=== PATIENT | male | born 1955 | race Caucasian/White ===

== ENCOUNTER → 2016-11-23 | Outpatient (CLI) | payer OTHER ==
[~2016-11-23] MED LIST: ASCO100061 PO; ASPCH81X PO; ASPI81TA28 PO; CHOL100010 PO; CHOL20007 PO; GINS1CAP PO; GREE150C5 PO; K PO; LYCOCAP2 PO; MAGN250T3 PO; MAGNESIU; MILK THISTLE PO; MILK140C PO; MISCTAB26; SELE1TAB5 PO; SIMV20TA2 PO; SPIRULINA; Selenium; TAMS0.4C38 PO; TURM500T PO; VITATAB19 PO; [UNRECOGNIZED DRUG - OTHER]; curcumin; ginseng PO; zinc
[2016-11-23 14:08] VITALS: BP 103/62; PULSE 76; TEMP 36.8; O2SAT 97
== END | disposition home or self-care (01) ==
LOC: C.ONC 13:57
PROVIDERS: ATTEND Physician Assistant Medical
DX: C61 Malignant neoplasm of prostate (principal)

== ENCOUNTER 2016-12-26 19:22 | Emergency (ER) | payer OTHER ==
[~2016-12-26] VITALS: Ht 172.7 cm; Wt 70.8 kg
[~2016-12-26 19:22] MED LIST changes: -ASPI81TA28 PO; -CHOL20007 PO; -GINS1CAP PO; -GREE150C5 PO; -MAGN250T3 PO; -MILK140C PO; -SELE1TAB5 PO; -TURM500T PO
[2016-12-26 19:31] VITALS: TEMP 36.7; Ht 172.7 cm; Wt 70.8 kg
[2016-12-26] MEDS ORDERED: MILK140C PO (21:18)
[2016-12-26] MEDS ORDERED: GREE150C5 PO (21:18)
[2016-12-26] MEDS ORDERED: ASPI81TA28 PO (21:18)
[2016-12-26] MEDS ORDERED: TURM500T PO (21:18)
[2016-12-26] MEDS ORDERED: SELE1TAB5 PO (21:18)
[2016-12-26] MEDS ORDERED: CHOL20007 PO (21:18)
[2016-12-26] MEDS ORDERED: GINS1CAP PO (21:18)
[2016-12-26] MEDS ORDERED: MAGN250T3 PO (21:18)
[2016-12-26] MEDS ORDERED: GI COCKTAIL PO STA (21:39)
[2016-12-26] MEDS ORDERED: SUCRALFATE 1 GM TAB PO STA (21:39)
[2016-12-26] MEDS ORDERED: FAMOTIDINE 20 MG TAB PO STA (21:39)
[2016-12-26] MEDS ORDERED: LIDOCAINE HCL 2% VISC SOLN 20 ML UDC ONE (22:03)
[2016-12-26] MEDS ORDERED: ALUMINUM/MAGNESIUM SUSP 30 ML UDC ONE (22:03)
--- NOTE | 2016-12-26 22:05 | DIAGNOSTIC IMAGING REPORT ---
CHEST ONE VIEW PORTABLE HISTORY: Atypical CHEST PAIN COMPARISON: Chest 06/14/2016. FINDINGS: The lungs are clear. Cardiac silhouette is normal in size. No pleural effusions. No pneumothorax. IMPRESSION: No acute process. Electronically signed by: Christian An M.D. 12/26/2016 10:03 PM Dictated Date/Time: 12/26/2016 10:02 PM
[2016-12-26 22:12] VITALS: O2SAT 98
[2016-12-26 22:14] LABS: BASO % 0.2 %; BASO ABS # 0.01 K/uL (0-0.2); COMPLETE YES; EOS % 2.6 %; HEMATOCRIT 40.4 % (42-52); LYMPH % 28.1 %; LYMPH ABS # 1.21 K/uL (1.2-3.4); MEAN CELL VOLUME 91.8 fL (80-100); MEAN CORPUSCULAR HEMOGLOBIN 33.4 pg (25-34); MEAN CORPUSCULAR HGB CONC 36.4 g/dl (32-36); MEAN PLATELET VOLUME 8.7 fL (7.4-10.4); MONO % 11.8 %; NEUT % 57.3 %; PLATELET COUNT 176 K/uL (130-400); WHITE BLOOD COUNT 4.31 K/uL (4.8-10.8)
[2016-12-26 22:34] LABS: ALT/SGPT 24 U/L (12-78); BLOOD UREA NITROGEN 10 mg/dl (7-18); BUN/CREATININE RATIO 13.2 (10-20); CARBON DIOXIDE 30 mmol/L (21-32); CHLORIDE 103 mmol/L (98-107); CREATININE 0.77 mg/dl (0.60-1.40); GLUCOSE 83 mg/dl (70-99); POTASSIUM 3.8 mmol/L (3.5-5.1); SODIUM 139 mmol/L (136-145)
[2016-12-26 22:38] LABS: CALCIUM 9.1 mg/dl (8.5-10.1)
[2016-12-26 22:40] LABS: ALKALINE PHOSPHATASE 59 U/L (45-117); AST/SGOT 16 U/L (15-37); CKMB/CK RATIO 1.3 (0-3.0)
[2016-12-26 23:13] VITALS: BP 129/84; PULSE 59; O2SAT 99
--- NOTE | 2016-12-26 23:32 | EMERGENCY ROOM VISIT NOTE ---
History Report prepared by Delia: Yessica Hernández Under the Supervision of: Dr. Jcarlos Sorensen M.D. First contact with patient: 20:59 Chief Complaint: CHEST PAIN Stated Complaint: CHEST PAIN, L ARM AND BACK PAIN Nursing Triage Summary: pt states he has had intermittent chest pain for ~2 weeks. states pain is left sided radiating into back. denies sob/dizziness/n/v. pt states pain is 1/10 at this time. pt breathing regularly and independently at this time. skin warm and dry. History of Present Illness The patient is a 61 year old male who presents to the Emergency Room with complaints of intermittent left-sided chest pains for the past two weeks. He states that two weeks ago he was doing yard work outside on a hot day. He became overheated and dehydrated. He developed a feeling of fullness in his chest. He states that it has improved, but it has never completely resolved. He is still experiencing a sensation of fullness in his chest. The patient rates his discomfort as a 2/10 in severity. He states that his fullness occasionally radiates into his left arm and back. Eating helps to alleviate his pain, but he reports having a lot of indigestion over the past couple of weeks. He just started taking Prilosec two days ago. The patient had similar pain in June. He followed-up with cardiology at that time and had a stress test that was negative. Source of History: patient Onset: 2 weeks ago Position: chest (left) Symptom Intensity: 2/10 Quality: other (fullness) Timing: intermittent Modifying Factors (Worsening): other (being outside in the heat exerting self) Modifying Factors (Relieving): eating Associated Symptoms: + back pain Review of Systems See HPI for pertinent positives & negatives. A total of 10 systems reviewed and were otherwise negative. Past Medical & Surgical Medical Problems: (1) Diverticulosis of colon (without mention of hemorrhage) (2) Prostate cancer Family History Patient reports no known family medical history. Social History Smoking Status: Never Smoker Drug Use: none Marital Status: Housing Status: lives with significant other Occupation Status: employed Current/Historical Medications Scheduled Ascorbic Acid (Ascorbic Acid), 1 TAB PO DAILY Aspirin (Aspirin Ec), 81 MG PO DAILY Cholecalciferol (Vitamin D3), 1 TAB PO DAILY Ginseng (Ginseng), 1 CAP PO 3XWK Green Tea (Camillia Sinensis) (Green Tea Extract), 1 TAB PO 3XWK Lycopene (Lycopene), 50 MG PO WK Magnesium (Magnesium 250 mg), 250 MG PO DAILY Milk Thistle (Silybum Marianum (Milk Thistle), 1 TAB PO DAILY Misc Natural Products (Ginkgo Biloba), 40 MG DAILY Selenium-Yeast (Selenium), 200 MG PO DAILY Simvastatin (Zocor), 20 MG PO QPM Tamsulosin Hcl (Flomax), 1 CAP PO BID Turmeric (Curcuma Longa) (Turmeric), 750 MG PO DAILY Vitamin A-Beta Carotene (Vitamin A), 8,000 UNITS PO 3XWK [zinc], 50 MG DAILY Allergies Uncoded Allergies: NKDA (Allergy, Unknown, 08/21/02) Physical Exam Vital Signs Date Time Temp Pulse Resp B/P (MAP) Pulse Ox O2 Delivery O2 Flow Rate FiO2 12/26/16 23:13 59 18 129/84 99 12/26/16 22:16 61 18 139/81 99 Nasal Cannula 2.0 12/26/16 22:12 98 Nasal Cannula 2.0 12/26/16 22:12 98 Nasal Cannula 2.0 12/26/16 21:37 58 12/26/16 20:52 54 18 123/84 96 Room Air 12/26/16 20:50 96 Room Air 12/26/16 19:31 36.7 56 18 135/88 97 Room Air Pain Rating (0-10): 0 Physical Exam GENERAL: Patient is a healthy-appearing well-nourished male. HEAD: Normocephalic atraumatic EYES: Ocular movements intact pupils equal and react to light OROPHARYNX mucous membranes are moist no exudates present no erythema or edema present NECK: Supple no nuchal rigidity CHEST: Good equal expansion LUNGS: Clear and equal to auscultation CARDIAC: Normal S1 and S2 ABDOMEN: Soft nontender no guarding BACK: No CVA tenderness EXTREMITIES: No pain upon palpation normal muscle strength in all groups no clubbing cyanosis or edema NEURO: Patient is following commands and answering questions appropriately. Alert and oriented x3 Cranial Nerves 2-12 grossly intact Medical Decision & Procedures ER Provider Diagnostic Interpretation: Radiology results as stated below per my review and radiologist interpretation: CHEST ONE VIEW PORTABLE HISTORY: Atypical CHEST PAIN COMPARISON: Chest 06/14/2016. FINDINGS: The lungs are clear. Cardiac silhouette is normal in size. No pleural effusions. No pneumothorax. IMPRESSION: No acute process. Electronically signed by: Christian An M.D. 12/26/2016 10:03 PM Dictated Date/Time: 12/26/2016 10:02 PM Laboratory Results 12/26/16 22:05 Red Blood Count 4.40, Mean Corpuscular Volume 91.8, Mean Corpuscular Hemoglobin 33.4, Mean Corpuscular Hemoglobin Concent 36.4, Mean Platelet Volume 8.7, Neutrophils (%) (Auto) 57.3, Lymphocytes (%) (Auto) 28.1, Monocytes (%) (Auto) 11.8, Eosinophils (%) (Auto) 2.6, Basophils (%) (Auto) 0.2, Neutrophils # (Auto ) 2.47, Lymphocytes # (Auto) 1.21, Monocytes # (Auto) 0.51, Eosinophils # (Auto ) 0.11, Basophils # (Auto) 0.01 12/26/16 22:05 Test 12/26/16 22:05 White Blood Count 4.31 K/uL (4.8-10.8) Red Blood Count 4.40 M/uL (4.7-6.1) Hemoglobin 14.7 g/dL (14.0-18.0) Hematocrit 40.4 % (42-52) Mean Corpuscular Volume 91.8 fL (80-100) Mean Corpuscular Hemoglobin 33.4 pg (25-34) Mean Corpuscular Hemoglobin Concent 36.4 g/dl (32-36) Platelet Count 176 K/uL (130-400) Mean Platelet Volume 8.7 fL (7.4-10.4) Neutrophils (%) (Auto) 57.3 % Lymphocytes (%) (Auto) 28.1 % Monocytes (%) (Auto) 11.8 % Eosinophils (%) (Auto) 2.6 % Basophils (%) (Auto) 0.2 % Neutrophils # (Auto) 2.47 K/uL (1.4-6.5) Lymphocytes # (Auto) 1.21 K/uL (1.2-3.4) Monocytes # (Auto) 0.51 K/uL (0.11-0.59) Eosinophils # (Auto) 0.11 K/uL (0-0.5) Basophils # (Auto) 0.01 K/uL (0-0.2) RDW Standard Deviation 40.4 fL (36.4-46.3) RDW Coefficient of Variation 11.9 % (11.5-14.5) Immature Granulocyte % (Auto) 0.0 % Immature Granulocyte # (Auto) 0.00 K/uL (0.00-0.02) Anion Gap 6.0 mmol/L (3-11) Est Creatinine Clear Calc Drug Dose 95.0 ml/min Estimated GFR () 111.9 Estimated GFR (Non- 96.6 BUN/Creatinine Ratio 13.2 (10-20) Calcium Level 9.1 mg/dl (8.5-10.1) Total Bilirubin 1.5 mg/dl (0.2-1) Direct Bilirubin 0.3 mg/dl (0-0.2) Aspartate Amino Transf (AST/SGOT) 16 U/L (15-37) Alanine Aminotransferase (ALT/SGPT) 24 U/L (12-78) Alkaline Phosphatase 59 U/L (45-117) Total Creatine Kinase 67 U/L (39-308) Creatine Kinase MB 0.9 ng/ml (0.5-3.6) Creatine Kinase MB Ratio 1.3 (0-3.0) Troponin I < 0.015 ng/ml (0-0.045) Total Protein 7.7 gm/dl (6.4-8.2) Albumin 3.8 gm/dl (3.4-5.0) Lipase 200 U/L (73-393) Labs reviewed by ED physician. Medications Administered Medications (Trade) Dose Ordered Sig/Tania Route Start Time Stop Time Status Last Admin Dose Admin Famotidine (Pepcid Tab) 20 mg NOW STAT PO 12/26/16 21:39 12/26/16 21:42 DC 12/26/16 22:10 20 MG Sucralfate (Carafate Tab) 1 gm NOW STAT PO 12/26/16 21:39 12/26/16 21:42 DC 12/26/16 22:11 1 GM Lidocaine HCl (Viscous Lidocaine 2% Soln) 20 ml STK-MED ONCE .ROUTE 12/26/16 22:03 12/26/16 22:04 DC 12/26/16 22:11 20 ML Al Hydroxide/Mg Hydroxide (Maalox Susp) 30 ml STK-MED ONCE .ROUTE 12/26/16 22:03 12/26/16 22:04 DC 12/26/16 22:12 30 ML ECG Indication: chest pain Rate (beats per minute): 58 Rhythm: sinus bradycardia Findings: no acute ischemic change, no ectopy ED Course 2111: Past medical records reviewed. The patient was evaluated in room C5. A complete history and physical examination was performed. 2138: Sucralfate 1 gm PO, Pepcid 20 mg PO, GI cocktail 24 ml PO 2300: I reassessed the patient at this time. He is feeling better and resting comfortably. I discussed the results and treatment plan with the patient. I answered all pertaining questions that he had. He expressed understanding and verbalized agreement. The patient will be discharged home. Medical Decision Differential diagnosis: Etiologies such as cardiac ischemia, aortic dissection, pulmonary embolism, pneumonia, pneumothorax, musculoskeletal, infections, pericarditis, myocarditis , esophageal rupture, gastrointestinal, as well as others were entertained. Medication Reconciliation: I attest that I have personally reviewed the patient' s current medication list. Blood Pressure Screening: Patient was found to have normal blood pressure on screening and does not require follow up. This is a 61-year-old male who presents emergency department complaining of chest tightness that is similar to what he had in July. At that time the patient had a stress test that was found to be normal. The patient himself started himself on Prilosec several days ago for the chest pain. As the chest pain is been ongoing for several weeks I would expect the troponin to be elevated if this were related to cardiac ischemia. As such it is not. In addition the patient was given a GI cocktail Pepcid and Carafate with cessation of the symptoms. Based on these findings I feel that the patient can be safely discharged home however stressed the need for follow-up with gastroenterology. Patient and are in agreement with the treatment plan area Impression Primary Impression: GERD (gastroesophageal reflux disease) Scribe Attestation The scribe's documentation has been prepared under my direction and personally reviewed by me in its entirety. I confirm that the note above accurately reflects all work, treatment, procedures, and medical decision making performed by me. Departure Information Dispostion Home / Self-Care Referrals Maryan Fajardo, DO Forms HOME CARE DOCUMENTATION FORM, IMPORTANT VISIT INFORMATION Patient Instructions Hypertension Control, [facility], ED GERD Additional Instructions Take 5ml Maalox before every meal and at bedtime Clear liquid diet next 48 hours Follow up with DR Fajardo's office You were found to have an elevated blood pressure today (>120 sytolic or >90 diastolic). Per medicare guidelines, you need to follow up with this blood pressure screening with your Primary Care Physician (PCP). For a new PCP call [phone]. You have been examined and treated today on an emergency basis only. This is not a substitute for, or an effort to provide, complete comprehensive medical care. It is impossible to recognize and treat all injuries or illnesses in a single emergency department visit. It is therefore important that you follow up closely with Dr Nails. Call as soon as possible for an appointment. Thank you for your time and consideration. I look forward to speaking with you again soon. Please don't hesitate to call us if you have any questions. Problem Qualifiers Primary Impression: GERD (gastroesophageal reflux disease) Esophagitis presence: esophagitis presence not specified Qualified Codes: K21.9 - Gastro-esophageal reflux disease without esophagitis
== END 2016-12-26 23:14 | disposition home or self-care (01) ==
LOC: C.EDB 19:25 → C.EDC 23:14
DX: K21.9 Gastro-esophageal reflux disease without esophagitis (principal); K57.31 Diverticulosis of large intestine without perforation or abscess with bleeding; Z85.46 Personal history of malignant neoplasm of prostate; Z79.82 Long term (current) use of aspirin; Z79.899 Other long term (current) drug therapy

== ENCOUNTER 2017-02-03 13:13 | Emergency (ER) | payer OTHER ==
[~2017-02-03] VITALS: Ht 170.2 cm; Wt 70.5 kg
[~2017-02-03 13:13] MED LIST changes: -ASPCH81X PO; +ASPI81TA28 PO; -CHOL100010 PO; +CHOL20007 PO; +GINS1CAP PO; +GREE150C5 PO; -K PO; +MAGN250T3 PO; -MAGNESIU; -MILK THISTLE PO; +MILK140C PO; +SELE1TAB5 PO; -SPIRULINA; -Selenium; +TURM500T PO; -[UNRECOGNIZED DRUG - OTHER]; -curcumin; -ginseng PO
[2017-02-03 13:17] VITALS: TEMP 36.7; Ht 170.2 cm; Wt 70.5 kg
[2017-02-03 14:44] VITALS: O2SAT 96
[2017-02-03 14:44] LABS: BASO % 0.2 %; BASO ABS # 0.01 K/uL (0-0.2); COMPLETE YES; EOS % 0.9 %; HEMATOCRIT 39.7 % (42-52); IG% 0.2 %; LYMPH % 24.1 %; LYMPH ABS # 1.05 K/uL (1.2-3.4); MEAN CELL VOLUME 92.1 fL (80-100); MEAN CORPUSCULAR HEMOGLOBIN 32.7 pg (25-34); MEAN CORPUSCULAR HGB CONC 35.5 g/dl (32-36); MEAN PLATELET VOLUME 8.6 fL (7.4-10.4); MONO % 11.5 %; NEUT % 63.1 %; PLATELET COUNT 189 K/uL (130-400); RED BLOOD COUNT 4.31 M/uL (4.7-6.1); WHITE BLOOD COUNT 4.35 K/uL (4.8-10.8)
--- NOTE | 2017-02-03 15:17 | DIAGNOSTIC IMAGING REPORT ---
CHEST ONE VIEW PORTABLE CLINICAL HISTORY: Chest pain. COMPARISON STUDY: Chest radiograph December 26, 2016. FINDINGS: Lung volumes are normal. There is no pneumothorax or pleural effusion. There is no consolidation to suggest pneumonia. Cardiac size is normal. Mediastinal contours are normal. Pulmonary vascularity is normal. IMPRESSION: No acute cardiopulmonary findings. Electronically signed by: Saulo Mora M.D. 02/03/2017 3:15 PM Dictated Date/Time: 02/03/2017 3:15 PM
[2017-02-03 15:18] LABS: ALT/SGPT 26 U/L (12-78); AST/SGOT 17 U/L (15-37); BLOOD UREA NITROGEN 11 mg/dl (7-18); BUN/CREATININE RATIO 13.7 (10-20); CALCIUM 9.3 mg/dl (8.5-10.1); CARBON DIOXIDE 32 mmol/L (21-32); CHLORIDE 102 mmol/L (98-107); CREATININE 0.78 mg/dl (0.60-1.40); GLUCOSE 85 mg/dl (70-99); POTASSIUM 3.9 mmol/L (3.5-5.1); SODIUM 136 mmol/L (136-145)
[2017-02-03 15:28] LABS: ALKALINE PHOSPHATASE 59 U/L (45-117); CKMB/CK RATIO 0.8 (0-3.0)
--- NOTE | 2017-02-03 15:48 | DIAGNOSTIC IMAGING REPORT ---
RIGHT LOWER EXTREMITY VENOUS DOPPLER CLINICAL HISTORY: Right leg pain. COMPARISON STUDY: No previous studies for comparison. TECHNIQUE: Sonography of the deep venous system of the right lower extremity was performed. Compression and augmentation were evaluated. FINDINGS: The right common femoral, superficial femoral and popliteal veins were compressible. Augmentation was normal. Flow was shown within the deep calf vessels. IMPRESSION: No evidence of deep venous thrombus within the right lower extremity. Electronically signed by: Saulo Mora M.D. 02/03/2017 3:46 PM Dictated Date/Time: 02/03/2017 3:46 PM
[2017-02-03] MEDS ORDERED: OPTIRAY 320 IV PRN (17:00)
--- NOTE | 2017-02-03 17:47 | DIAGNOSTIC IMAGING REPORT ---
CT ANGIOGRAPHY OF THE CHEST, PULMONARY EMBOLUS PROTOCOL CLINICAL HISTORY: Left sided chest pain. Left leg pain. COMPARISON STUDY: Chest radiographs December 26, 2016 and February 03, 2017. TECHNIQUE: Following IV administration of 105 mL of Optiray-320, helical axial images of the chest were obtained utilizing the pulmonary embolus protocol. Maximal intensity projections and sagittal and coronal reformats were viewed on an independent 3D workstation. IV contrast was administered without complication. A dose lowering technique was utilized adhering to the principles of ALARA. CT DOSE: 299.72 mGy.cm FINDINGS: No pulmonary emboli are identified. The size of the heart is normal. There is no evidence of thoracic aortic dissection. No enlarged axillary, mediastinal or hilar lymph nodes are present. There is no consolidation to suggest pneumonia. Bony thorax and upper abdomen are unremarkable. IMPRESSION: 1. No pulmonary emboli identified. 2. No acute intrathoracic findings. Electronically signed by: Saulo Mora M.D. 02/03/2017 5:46 PM Dictated Date/Time: 02/03/2017 5:40 PM
[2017-02-03 18:41] VITALS: BP 137/115; PULSE 54; O2SAT 99
--- NOTE | 2017-02-03 19:17 | EMERGENCY ROOM VISIT NOTE ---
History Report prepared by Delia: Eitan Granda Under the Supervision of: Dr. Renato Salas M.D. First contact with patient: 14:03 Chief Complaint: BACK PAIN Stated Complaint: RIGHT LEG PAIN FOR 2 WKS,LEFT BACK PAIN History of Present Illness The patient is a 61 year old male who presents to the Emergency Room with complaints of constant middle to left back pain that started this morning. He rates his pain as a 10/10 in severity and states that it is worsened with breathing. The patient states that two weeks ago he started to experience right leg pain below and in his calf. He states that a week later, the pain migrated to his right thigh and groin. The patient denies any swelling to his leg or discoloration, and he admits that his right leg is larger than his left at baseline. He states that he was not able to get sleep two nights ago and had a dream that someone was sitting on his chest. The patient states that he woke up and he felt tachycardic, but he was able to calm himself and go back to sleep. He reports that his leg pain went from a 3/10 to a 1/10 in severity yesterday. The patient reports that he was able to sleep last night, but woke up this morning with pain radiating from his middle back to his left side to the bottom of his left side rib cage. He also reports that he has been lightheaded recently and states it is "as if I stood up quickly". 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 He reports that his last time traveling was in October via flight. The patient denies a history of blood clots, hypertension, heart issues, diabetes, LOC, headache, fevers, chills, diaphoresis , visual changes, neck pain, tearing pain radiating to the back, personal history or family history of aneurysm or pulmonary embolism, uncontrolled hypertension, breathing difficulties, leg swelling, coagulation abnormalities, prolonged travel, recent surgery or immobilization, nausea, vomiting, abdominal pain, melena, hematochezia, urinary symptoms, numbness, weakness, lymphadenopathy, rash, or other complaints. Source of History: patient Onset: this morning Position: back Symptom Intensity: 1/10 Timing: constant Modifying Factors (Worsening): breathing Associated Symptoms: + chest pain Review of Systems See HPI for pertinent positives and negatives. A total of ten systems were reviewed and were otherwise negative. Past Medical & Surgical Medical Problems: (1) Diverticulosis of colon (without mention of hemorrhage) (2) Prostate cancer Family History Patient reports no known family medical history. Social History Smoking Status: Never Smoker Drug Use: none Marital Status: Housing Status: lives with significant other Occupation Status: employed Current/Historical Medications Scheduled Ascorbic Acid (Ascorbic Acid), 1 TAB PO DAILY Aspirin (Aspirin Ec), 81 MG PO DAILY Cholecalciferol (Vitamin D3), 1 TAB PO DAILY Ginseng (Ginseng), 1 CAP PO 3XWK Green Tea (Camillia Sinensis) (Green Tea Extract), 1 TAB PO 3XWK Lycopene (Lycopene), 50 MG PO WK Magnesium (Magnesium 250 mg), 250 MG PO DAILY Milk Thistle (Silybum Marianum (Milk Thistle), 1 TAB PO DAILY Misc Natural Products (Ginkgo Biloba), 40 MG DAILY Selenium-Yeast (Selenium), 200 MG PO DAILY Simvastatin (Zocor), 20 MG PO QPM Tamsulosin Hcl (Flomax), 1 CAP PO BID Turmeric (Curcuma Longa) (Turmeric), 750 MG PO DAILY Vitamin A-Beta Carotene (Vitamin A), 8,000 UNITS PO 3XWK [zinc], 50 MG DAILY Allergies Coded Allergies: No Known Allergies (Unverified , 02/03/17) Physical Exam Vital Signs Date Time Temp Pulse Resp B/P (MAP) Pulse Ox O2 Delivery O2 Flow Rate FiO2 02/03/17 18:41 54 17 137/115 99 Room Air 02/03/17 17:27 57 02/03/17 17:18 58 18 154/92 96 Room Air 02/03/17 15:38 57 10 155/88 97 Room Air 02/03/17 14:44 99 Room Air 02/03/17 14:44 96 Room Air 02/03/17 14:35 153/88 155/89 02/03/17 13:17 36.7 60 20 157/89 97 Room Air Physical Exam GENERAL: Awake, alert, well-appearing, in no distress HENT: Normocephalic, atraumatic. Oropharynx unremarkable. EYES: Normal conjunctiva. Sclera non-icteric. NECK: Supple. No nuchal rigidity. FROM. No JVD. RESPIRATORY: Clear to auscultation. CARDIAC: Regular rate, normal rhythm. Extremities warm and well perfused. Pulses equal. ABDOMEN: Soft, non-distended. No tenderness to palpation. No rebound or guarding. No masses. RECTAL: Deferred. MUSCULOSKELETAL: Chest examination reveals no tenderness. The back is symmetrical on inspection without obvious abnormality. There is no CVA tenderness to palpation. No joint edema. LOWER EXTREMITIES: Calves are equal size bilaterally and non-tender. No edema. No discoloration. NEURO: Normal sensorium. No sensory or motor deficits noted. SKIN: No rash or jaundice noted. Medical Decision & Procedures ER Provider Diagnostic Interpretation: Radiology results as stated below per my review and radiologist interpretation: RIGHT LOWER EXTREMITY VENOUS DOPPLER CLINICAL HISTORY: Right leg pain. COMPARISON STUDY: No previous studies for comparison. TECHNIQUE: Sonography of the deep venous system of the right lower extremity was performed. Compression and augmentation were evaluated. FINDINGS: The right common femoral, superficial femoral and popliteal veins were compressible. Augmentation was normal. Flow was shown within the deep calf vessels. IMPRESSION: No evidence of deep venous thrombus within the right lower extremity. Electronically signed by: Saulo Mora M.D. 02/03/2017 3:46 PM Dictated Date/Time: 02/03/2017 3:46 PM CHEST ONE VIEW PORTABLE CLINICAL HISTORY: Chest pain. COMPARISON STUDY: Chest radiograph December 26, 2016. FINDINGS: Lung volumes are normal. There is no pneumothorax or pleural effusion. There is no consolidation to suggest pneumonia. Cardiac size is normal. Mediastinal contours are normal. Pulmonary vascularity is normal. IMPRESSION: No acute cardiopulmonary findings. Electronically signed by: Saulo Mora M.D. 02/03/2017 3:15 PM Dictated Date/Time: 02/03/2017 3:[address] ANGIOGRAPHY OF THE CHEST, PULMONARY EMBOLUS PROTOCOL CLINICAL HISTORY: Left sided chest pain. Left leg pain. COMPARISON STUDY: Chest radiographs December 26, 2016 and February 03, 2017. TECHNIQUE: Following IV administration of 105 mL of [id number]-320, helical axial images of the chest were obtained utilizing the pulmonary embolus protocol. Maximal intensity projections and sagittal and coronal reformats were viewed on an independent 3D workstation. IV contrast was administered without complication. A dose lowering technique was utilized adhering to the principles of ALARA. CT DOSE: 299.72 mGy.cm FINDINGS: No pulmonary emboli are identified. The size of the heart is normal. There is no evidence of thoracic aortic dissection. No enlarged axillary, mediastinal or hilar lymph nodes are present. There is no consolidation to suggest pneumonia. Bony thorax and upper abdomen are unremarkable. IMPRESSION: 1. No pulmonary emboli identified. 2. No acute intrathoracic findings. Electronically signed by: Saulo Mora M.D. 02/03/2017 5:46 PM Dictated Date/Time: 02/03/2017 5:40 PM Laboratory Results 02/03/17 14:25 Red Blood Count 4.31, Mean Corpuscular Volume 92.1, Mean Corpuscular Hemoglobin 32.7, Mean Corpuscular Hemoglobin Concent 35.5, Mean Platelet Volume 8.6, Neutrophils (%) (Auto) 63.1, Lymphocytes (%) (Auto) 24.1, Monocytes (%) (Auto) 11.5, Eosinophils (%) (Auto) 0.9, Basophils (%) (Auto) 0.2, Neutrophils # (Auto ) 2.74, Lymphocytes # (Auto) 1.05, Monocytes # (Auto) 0.50, Eosinophils # (Auto ) 0.04, Basophils # (Auto) 0.01 02/03/17 14:25 Test 02/03/17 14:25 02/03/17 14:41 02/03/17 16:24 White Blood Count 4.35 K/uL (4.8-10.8) Red Blood Count 4.31 M/uL (4.7-6.1) Hemoglobin 14.1 g/dL (14.0-18.0) Hematocrit 39.7 % (42-52) Mean Corpuscular Volume 92.1 fL (80-100) Mean Corpuscular Hemoglobin 32.7 pg (25-34) Mean Corpuscular Hemoglobin Concent 35.5 g/dl (32-36) Platelet Count 189 K/uL (130-400) Mean Platelet Volume 8.6 fL (7.4-10.4) Neutrophils (%) (Auto) 63.1 % Lymphocytes (%) (Auto) 24.1 % Monocytes (%) (Auto) 11.5 % Eosinophils (%) (Auto) 0.9 % Basophils (%) (Auto) 0.2 % Neutrophils # (Auto) 2.74 K/uL (1.4-6.5) Lymphocytes # (Auto) 1.05 K/uL (1.2-3.4) Monocytes # (Auto) 0.50 K/uL (0.11-0.59) Eosinophils # (Auto) 0.04 K/uL (0-0.5) Basophils # (Auto) 0.01 K/uL (0-0.2) RDW Standard Deviation 41.3 fL (36.4-46.3) RDW Coefficient of Variation 12.1 % (11.5-14.5) Immature Granulocyte % (Auto) 0.2 % Immature Granulocyte # (Auto) 0.01 K/uL (0.00-0.02) Anion Gap 2.0 mmol/L (3-11) Est Creatinine Clear Calc Drug Dose 90.7 ml/min Estimated GFR () 111.3 Estimated GFR (Non- 96.1 BUN/Creatinine Ratio 13.7 (10-20) Calcium Level 9.3 mg/dl (8.5-10.1) Total Bilirubin 1.9 mg/dl (0.2-1) Direct Bilirubin 0.4 mg/dl (0-0.2) Aspartate Amino Transf (AST/SGOT) 17 U/L (15-37) Alanine Aminotransferase (ALT/SGPT) 26 U/L (12-78) Alkaline Phosphatase 59 U/L (45-117) Total Creatine Kinase 61 U/L (39-308) Creatine Kinase MB 0.5 ng/ml (0.5-3.6) Creatine Kinase MB Ratio 0.8 (0-3.0) Total Protein 7.3 gm/dl (6.4-8.2) Albumin 3.9 gm/dl (3.4-5.0) Lipase 146 U/L (73-393) Bedside D-Dimer 173 ng/mlFEU (0-450) Troponin I < 0.015 ng/ml (0-0.045) Laboratory results reviewed by me ECG Indication: back/shoulder pain Rate (beats per minute): 54 Rhythm: sinus bradycardia Findings: no acute ischemic change, no ectopy ED Course 141: The patient was evaluated in room A04B. A complete history and physical exam was performed. 1740: I reevaluated the patient and he is resting comfortably. I updated him on his results so far. He is waiting for his CT results. 1827: I reevaluated the patient. Discussed results and discharge instructions: He verbalized understanding and agreement. The patient is ready for discharge. Medical Decision Triage Nursing notes reviewed. The patient's presentation and history were concerning for chest and back pain. Etiologies such as cardiac ischemia, aortic dissection, pulmonary embolism, pneumonia, pneumothorax, musculoskeletal, infections, gastrointestinal, as well as others were entertained. The patient was evaluated. ECG was nonischemic. Chest x-ray was unremarkable. The CBC, chemistry panel, LFTs, lipase, and cardiac markers. Patient had repeat troponin and this was unchanged. Ultrasound imaging of the lower extremities reveal no evidence of DVT. CT scan of the chest revealed no evidence of PE or dissection. I suspect that this may be musculoskeletal as he has pain with movement. There may be a component of pleurisy as he does have some pain with deep breathing. Either way emergent issues have been ruled out not been found. I discussed conservative management with close outpatient follow-up. The patient was in agreement. I gave my usual and customary discussion regarding this issue. By the evaluation outlined above other emergent etiologies such as those listed in the differential, as well as others, were deemed relatively unlikely. The patient was educated about the findings as listed above. All questions were answered and the patient was pleased with the treatment. Return instructions were outlined and the patient was discharged in stable condition. The patient was referred to PCP for follow-up for a recheck of the current condition. Medication Reconcilliation Current Medication List: was personally reviewed by me Blood Pressure Screening Patient's blood pressure: Elevated blood pressure Blood pressure disposition: Referred to PCP Impression Primary Impression: Left sided chest pain Additional Impression: Left-sided back pain Scribe Attestation The scribe's documentation has been prepared under my direction and personally reviewed by me in its entirety. I confirm that the note above accurately reflects all work, treatment, procedures, and medical decision making performed by me. Departure Information Dispostion Home / Self-Care Referrals Tierra Nails D.O. (PCP) Forms HOME CARE DOCUMENTATION FORM, IMPORTANT VISIT INFORMATION Patient Instructions My [facility] Additional Instructions CHEST PAIN INSTRUCTIONS: Ibuprofen(Motrin, Advil) may be used for fever or pain. Use 600mg every six hours as needed. Take with food. Avoid using more than 2400mg in a 24 hour period. Do not use 2400mg per day for more than three consecutive days without physician direction. Prolonged inappropriate use can lead to stomach upset or ulcers. (AND/OR) Acetaminophen(Tylenol) may be used for fever or pain. Use 1000mg every six hours as needed. Avoid using more than 4000mg in a 24 hour period. Rest and drink plenty of fluids as tolerated. Continue current medications. Avoid strenuous activities and anything that worsens your pain. Resume normal activities once your symptoms resolve. Return to the ER immediately for worsening or persistent chest pain, abdominal pain, vomiting, fevers, chest pains, difficulty breathing, worsening of your condition, or as needed. Follow up with your primary physician in 2-3 days for a recheck of your current condition and a recheck of your blood pressure. Problem Qualifiers
== END 2017-02-03 18:54 | disposition home or self-care (01) ==
LOC: C.EDB 13:14 → C.EDA 18:54
DX: M54.9 Dorsalgia, unspecified (principal); R07.9 Chest pain, unspecified; Z85.46 Personal history of malignant neoplasm of prostate; K57.30 Diverticulosis of large intestine without perforation or abscess without bleeding; Z79.82 Long term (current) use of aspirin; Z79.899 Other long term (current) drug therapy

== ENCOUNTER → 2017-05-24 | Outpatient (CLI) | payer OTHER ==
[2017-05-24 13:52] VITALS: BP 121/78; PULSE 66; TEMP 36.6; O2SAT 97
--- NOTE | 2017-05-24 18:33 | Radiation Oncology Follow-Up ---
Radiation Oncology Follow-Up Date of Visit May 24, 2017. Reason For Visit Mr. Smith returns for his regularly scheduled follow-up visit. Radiation Completion Date History of Present Illness Mr. Rodrigo Smith is a 62-year-old male without a family history of prostate cancer. He had been followed with annual screening PSA's. These have been in the range of 2-3 for several years. In November 2009 the prostate-specific antigen was 3.19. This was repeated in January 2010 with a return to 2.8. In January 2011 prostate-specific antigen was 3.26. November 2011 prostate-specific antigen was 2.6. November 2012 2.98. November 25, 2014 prostate-specific antigen was 3.92. He has had an area of firmness and asymmetrical enlargement noted both by Dr. Rodney and subsequently by Dr. Casandra Brown. They had discussed with him a biopsy in 2010 but at that time the patient declined. He has had increasing urinary frequency and was taking tamsulosin once a day. Because of the abnormal digital rectal exam and rising prostate-specific antigen patient underwent ultrasound-guided biopsies by Dr. Brown on 12/14/2014. A total of 13 biopsies were taken. All were benign with the exception of the left lateral base where an adenocarcinoma Forsyth grade 3+4 was identified involving 33% of the core tissue sample. Several of the additional benign biopsies did however show evidence of active chronic inflammation. Accession #: [id number]. A total of 1 out of 13 biopsies were positive. The decision was made to continue follow-up and active surveillance basis. Repeat prostate-specific antigen on 12/28/2015 showed a further mild increased to 4.30. This prompted a second biopsy scheduled for 01/31/2016. Biopsy from the left lateral base was again positive this time with a Eduardo grade 3+3 involving 6% of the core tissue sample with no perineural invasion identified. Biopsy of the left base was positive for adenocarcinoma Forsyth grade 3+3 involving 5% of the core tissue sample with no perineural invasion identified. Biopsies from the left lateral mid gland was positive for adenocarcinoma Eduardo grade 3+3 involving 4% of the core tissue sample with no perineural invasion seen. Biopsies from the left mid gland was positive for adenocarcinoma Forsyth grade 3+4 involving 35% of the core tissue sample with no perineural invasion seen. Biopsy from the left apex was positive for adenocarcinoma Eduardo grade 3+4 involving 8% of the core tissue sample with no perineural invasion seen. Therefore total of 5 out of 16 biopsies were positive , 3 were Forsyth grade 3+3 and 2 were Eduardo grade 3+4. Accession #: [id number]. After discussion of his treatment options the patient opted to proceed with combined modality therapy consisting of a course of hypo-fractionated radiation to the prostate, adjacent seminal vesicle and periprostatic tissue. The patient was treated from 09/12/2016 through 10/20/2016. He received a total of 28 fractions delivered over 39 days. He received a daily dose of 250 cGy per fraction and a total dose of 70 Gy. He completed his hypo-fractionated course of radiation therapy. He tolerated this well. He was on tamsulosin 0.4 mg daily. This was increased to twice daily. His AUA score at the beginning of treatment was 16. At the end of treatment his AUA score was 18. He did not require any breaks in treatment. He denied fatigue. He will continue regular follow-up with his primary care provider and Dr. Brown. We asked her to return to our office in one month. At that time a PSA will be obtained. He'll be seeing urology within the next 3 months. Plan to continue recheck PSAs every 6 months thereafter for 5 years. Interim History Since the completion of his treatment the patient has done well. His AUA score immediately post-treatment was an 18. He repeated the AUA sheet today and received a score of 9. He also completed the expanded prostate cancer index composite for clinical practice (EPIC-CP) and received an overall prostate cancer quality of life score of 15/60. The patient continues to be followed by Dr. Brown. His initial prostate- specific antigen post-treatment taken on 11/23/2016 was 1.82. This was recently repeated by Dr. Brown on 02/15/2017 and showed continued improvement with a value of 1.43. The patient denies any significant bowel symptoms with no bleeding or significant diarrhea. Allergies Coded Allergies: No Known Allergies (Unverified , 02/03/17) Home Medications Scheduled Ascorbic Acid (Ascorbic Acid), 1 TAB PO DAILY Aspirin (Aspirin Ec), 81 MG PO DAILY Cholecalciferol (Vitamin D3), 1 TAB PO DAILY Ginseng (Ginseng), 1 CAP PO 3XWK Green Tea (Camillia Sinensis) (Green Tea Extract), 1 TAB PO 3XWK Lycopene (Lycopene), 50 MG PO WK Magnesium (Magnesium 250 mg), 250 MG PO DAILY Milk Thistle (Silybum Marianum (Milk Thistle), 1 TAB PO DAILY Misc Natural Products (Ginkgo Biloba), 40 MG DAILY Selenium-Yeast (Selenium), 200 MG PO DAILY Simvastatin (Zocor), 20 MG PO QPM Tamsulosin Hcl (Flomax), 1 CAP PO BID Vitamin A-Beta Carotene (Vitamin A), 8,000 UNITS PO 3XWK Review of Systems Gastrointestinal: Symptoms: Constipation GI Comments: controlled with probiotics and yogurt and magnesium Oral: Symptoms: No Problems Respiratory: Symptoms: WNL Urinary: Symptoms: WNL Comments: nocturia times 2, some urgency ( back to normal for him ) Skin: Symptoms: No Problems Physical Exam Vital Signs Date Time Temp Pulse Resp B/P (MAP) Pulse Ox O2 Delivery O2 Flow Rate FiO2 05/24/17 13:52 36.6 66 18 121/78 97 Pain Management Side: Bilateral Pain Location: None Patient Preferred Pain Scale: 0 - 10 Laboratory Studies Prostate-specific antigen from 02/15/2017 was 1.43. Additional Studies There were no recent scans or other significant blood test taken in the interim. Assessment & Plan (Attending) We will continue to follow Mr. Smith. We hope to alternate our visits with Dr. Brown. We will therefore see him in one year's time with repeat prostate- specific antigen as recommended by Dr. Brown. Total Time (Attending) In Follow-Up I spent 15 minutes in discussion and evaluation of Mr. Smith and 5 minutes in reviewing his chart and in preparation of this document. Copy To Casandra Brown MD; Cristine Rodney M.D.
== END | disposition home or self-care (01) ==
LOC: C.ONC 13:38
PROVIDERS: ATTEND Physician Assistant Medical
DX: Z08 Encounter for follow-up examination after completed treatment for malignant neoplasm (principal); Z92.3 Personal history of irradiation; Z85.46 Personal history of malignant neoplasm of prostate